=== PATIENT | male | born 1965 | race Caucasian/White ===

== ENCOUNTER 2017-10-15 11:52 | Inpatient (IN) | payer OTHER ==
[~2017-10-15] VITALS: Ht 185.4 cm; Wt 100.0 kg
[2017-10-15 14:10] VITALS: BP 164/86
[2017-10-15 14:33] LABS: BILIRUBIN NEGATIVE (NEGATIVE); BLOOD NEGATIVE (NEGATIVE); CLARITY CLEAR (CLEAR); COLOR YELLOW (YELLOW); GLUCOSE NEGATIVE (NEGATIVE); KETONE NEGATIVE (NEGATIVE); LEUKO ESTERASE NEGATIVE (NEGATIVE); NITRITE NEGATIVE (NEGATIVE); PH 5.5 (5.0-9.0); SPECIFIC GRAVITY >= 1.030 (1.005-1.030)
[2017-10-15 14:41] LABS: BASO % 0.6 % (0.0-1.0); EOS # 0.3 10*3/uL (0.0-0.4); EOS % 3.9 % (1.0-4.0); HEMATOCRIT 40.1 % (42.0-52.0); HEMOGLOBIN 13.2 g/dl (14.0-18.0); LYMPH # 1.8 10*3/uL (1.3-4.4); LYMPH % 28.1 % (27.0-41.0); MEAN CELL VOLUME 83.5 fl (80.0-94.0); MEAN CORPUSCULAR HGB 27.5 pg (27.0-31.0); MEAN CORPUSCULAR HGB CONC 32.9 g/dl (33.0-37.0); MEAN PLATELET VOLUME 10.4 fl (9.6-12.3); MONO # 0.5 10*3/uL (0.1-1.0); MONO % 7.3 % (3.0-9.0); NEUT # 3.8 10*3/uL (2.3-7.9); NEUT % 59.6 % (47.0-73.0); PLATELET COUNT AUTOMATED 207 10*3/uL (130-400); RED CELL DISTRI WIDTH 13.7 % (0-14.5); WHITE BLOOD COUNT 6.4 10*3/uL (4.8-10.8)
[2017-10-15 14:42] LABS: URINE AMPHETAMINES > 1000 (1000ng/ml); URINE BARBITURATES < 200 (200ng/ml); URINE BENZODIAZEPINES > 200 (200ng/ml); URINE CANNABINOIDS (THC) < 50 (50ng/ml); URINE COCAINE > 300 (300ng/ml); URINE METHADONE < 300 (300ng/ml); URINE OPIATES > 300 (300ng/ml)
[2017-10-15 14:46] LABS: URINE PHENCYCLIDINE < 25 (25ng/ml)
[2017-10-15 14:47] LABS: INTERNATIONAL NORM RATIO 0.9 (2.0-3.5)
[2017-10-15 14:57] LABS: CALCIUM OXALATE CRYSTALS 1+; EPITHELIAL CELLS 0-2; WBC 0-2 wbc/hpf (0-5)
[2017-10-15 15:00] LABS: ALBUMIN 3.9 gm/dl (3.1-4.5); ALKALINE PHOSPHATASE 89 U/L (45-117); BUN 17 mg/dl (7-24); CHLORIDE 104 mmol/L (98-107); CREATININE 0.96 mg/dL (0.70-1.30); ETHYL ALCOHOL < 3.0 mg/dl (<3); SGOT/AST 24 IU/L (3-35); SGPT/ALT 68 U/L (12-78); SODIUM 138 mmol/L (136-145)
[2017-10-15 16:00] VITALS: BP 152/92
[2017-10-15 20:00] VITALS: BP 159/86
[2017-10-16] VITALS: BP 111/62
[2017-10-16 04:00] VITALS: BP 105/78
[2017-10-16 08:00] VITALS: BP 140/74
[2017-10-16 16:00] VITALS: BP 141/97
[2017-10-16 20:00] VITALS: BP 132/82
[2017-10-17] VITALS: BP 114/79; BP 161/83
[2017-10-17 08:00] VITALS: BP 130/91
[2017-10-17 16:00] VITALS: BP 154/90
[2017-10-17 20:00] VITALS: BP 133/78
[2017-10-18 08:00] VITALS: BP 134/75
== END 2017-10-18 11:57 | disposition home or self-care (01) | DRG 897 ==
LOC: 5E 11:52
PROVIDERS: Emergency Medicine; Internal Medicine Hospice and Palliative Medicine
DX: F11.23 Opioid dependence with withdrawal (principal); D64.9 Anemia, unspecified; F14.23 Cocaine dependence with withdrawal; I10 Essential (primary) hypertension; F13.10 Sedative, hypnotic or anxiolytic abuse, uncomplicated; F15.10 Other stimulant abuse, uncomplicated; M19.90 Unspecified osteoarthritis, unspecified site; M06.9 Rheumatoid arthritis, unspecified; F41.0 Panic disorder [episodic paroxysmal anxiety]; F17.210 Nicotine dependence, cigarettes, uncomplicated; R73.9 Hyperglycemia, unspecified; Z71.6 Tobacco abuse counseling; Z81.1 Family history of alcohol abuse and dependence; Z80.42 Family history of malignant neoplasm of prostate; Z80.1 Family history of malignant neoplasm of trachea, bronchus and lung; Z82.0 Family history of epilepsy and other diseases of the nervous system; Z83.3 Family history of diabetes mellitus